=== PATIENT | female | born 1965 | race Caucasian/White ===

== ENCOUNTER → 2017-10-01 | Outpatient (CLI) | payer OTHER ==
[~2017-10-01] MED LIST: AUGMENTIN 875-1 EACH PO; B-12500 MC1 PO; CEFDINIR300 MG PO; CEFUROXIME250 MG PO; CEFUROXIME500 MG PO; CIPROFLOXACIN500 M3; CITALOPRAM HBR40 MG PO; FLOMAX0.4 MG PO; GABAPENTIN 100100 MG PO; GLUCOSAMINE HC500 MG PO; HUMIRA SQ; HYDROCHLOROTHIA25 M2 PO; HYDROCODONE-AP1 EAC6 PO; IBUPROFEN 200200 M1 PO; IBUPROFEN 800800 M1 PO; IRON325 PO; KEFLEX500 M1 PO; KEFLEX500 MG PO; LEVSIN0.125 MG PO; LEVSIN0.125 MG SUBLING; LIALDA1.2 GM PO; LISINOPRIL20 MG PO; LORTAB 5 MG/5001 TA1; PROBIOTIC1 EAC1 PO; TRAMADOL 50 MG50 MG PO; TRANSDERM-SCOP1 EACH TRANSDERM; VANCOCIN 250 M250 M1 PO; VESICARE 5 MG TA5 MG PO; VITAMIN D1000 UNI1 PO; VITAMIN D3400 UNIT PO; XANAX 0.5 MG0.5 MG PO; ZOFRAN ODT4 MG DISSOLVE
== END ==
LOC: M.RAD 09:34
DX: Z12.31 Encounter for screening mammogram for malignant neoplasm of breast (principal)

== ENCOUNTER → 2017-10-06 | Outpatient (CLI) | payer OTHER | LOC: M.RAD 10-02 10:51 | DX: N63.10 Unspecified lump in the right breast, unspecified quadrant (principal); R92.8 Other abnormal and inconclusive findings on diagnostic imaging of breast ==

== ENCOUNTER → 2017-10-09 | Outpatient (CLI) | payer OTHER ==
--- NOTE | 2017-10-10 15:20 | S ---
[place] [address] SURGICAL PATH RPT PROCEDURE Name: KELLY ESTEVES Room: [facility]..#: [id number] Admission: 10/09/17 Date of : 65 Discharge: Report #: [id number] Path Case #: [id number] PATHOLOGY REPORT COLLECTION DATE: 10/09/2017 RECEIVED DATE: 10/09/2017 SUBMITTING PHYS: Dr. Oswaldo Miles OTHER PHYS: Dr. Julieth Vasquez [facility] SPECIMEN(S) RECEIVED: A.Right breast mass with calcification * * * * * * * * * * * * FINAL DIAGNOSIS: Right breast mass with calcifications, sterotactic biopsy: - Benign breast tissue with incidental small fibroadenoma, fibrosis, and duct ectasia with abundant coarse luminal calcifications, negative for atypia (see comment). COMMENT: An incidental fibroadenoma measuring 1 mm is seen in A4. Reviewed with Dr. Trevor Duran who agrees with the diagnosis. (ELADIA:pit; 10/10/2017) PATHOLOGIST: Brennen Wild M.D. REPORT ELECTRONICALLY SIGNED BY: Brennen Wild M.D. DATE/TIME: 10/10/2017 15:19 * * * * * * * * * * * * GROSS PATHOLOGY: Received in formalin labeled "Kelly Esteves, right breast mass with calcification" is a specimen consisting of a 3.0 x 2.0 x 0.3 cm aggregate of maed-yellow fragments of soft tissue, which are located on a portion of Telfa pad within the container. These fragments are submitted in cassettes A1-A2. Also within the container is a cassette containing a 2.5 x 2.2 x 0.5 cm aggregate of mead-yellow fragments of soft tissue. The fragments are submitted in cassettes A3-A4. The specimen is removed from the patient and placed in formalin at 1119 on 10/09/18. The specimen is removed from formalin at 2150 on 10/09/17. Total formalin fixation time of 10.5 hours. ([facility]; 10/09/2017) CLINICAL HISTORY: Right breast stereotactic biopsy [place] [address] SURGICAL PATH RPT PROCEDURE Name: ESTEVESKELLYCODI ROJOE Room: [facility]#: [id number] Admission: 10/09/17 Date of : 65 Discharge: Report #: [id number] Path Case #: [id number] INITIAL CPT CODE(S): A; 41655 Professional services performed by [facility] at [facility] [address] [place] [address] Technical services performed by [facility] at [address] [place] [address], [facility] [address], [place] [address]. [facility] [address] [address] PHONE: [phone] DIRECTOR: Donnell Senior M.D. * * * END OF REPORT * * *
== END | disposition home or self-care (01) ==
LOC: M.RAD 10:26
DX: D24.1 Benign neoplasm of right breast (principal); N60.41 Mammary duct ectasia of right breast; Z79.891 Long term (current) use of opiate analgesic; Z88.8 Allergy status to other drugs, medicaments and biological substances; Z87.440 Personal history of urinary (tract) infections

== ENCOUNTER → 2018-04-02 | Outpatient (CLI) | payer OTHER ==
[~2018-04-02] MED LIST changes: -AUGMENTIN 875-1 EACH PO; -GLUCOSAMINE HC500 MG PO; -LEVSIN0.125 MG SUBLING; -PROBIOTIC1 EAC1 PO; -TRAMADOL 50 MG50 MG PO; -TRANSDERM-SCOP1 EACH TRANSDERM
== END ==
LOC: M.RAD 09:18
DX: R92.8 Other abnormal and inconclusive findings on diagnostic imaging of breast (principal)

== ENCOUNTER 2018-04-18 07:55 | Emergency (ER) | payer OTHER ==
[~2018-04-18] VITALS: Ht 165.1 cm; Wt 99.8 kg
[~2018-04-18 07:55] MED LIST changes: -CEFDINIR300 MG PO; -CITALOPRAM HBR40 MG PO; -GABAPENTIN 100100 MG PO; -HYDROCHLOROTHIA25 M2 PO; -KEFLEX500 M1 PO; -LISINOPRIL20 MG PO; -VESICARE 5 MG TA5 MG PO; -VITAMIN D3400 UNIT PO; -ZOFRAN ODT4 MG DISSOLVE
[2018-04-18 08:08] LABS: URINE BILIRUBIN NEGATIVE (Negative); URINE BLOOD 3+ (Negative); URINE CLARITY CLEAR; URINE COLOR YELLOW; URINE GLUCOSE-RANDOM NEGATIVE (Negative); URINE KETONES NEGATIVE (Negative); URINE PROTEIN 2+ (Negative); URINE SPECIFIC GRAVITY 1.025 (1.005-1.030); URINE UROBILINOGEN 0.2 E.U./dl (0.2-1.0)
[2018-04-18] MEDS ORDERED: LISINOPRIL20 MG PO (08:09)
[2018-04-18] MEDS ORDERED: CITALOPRAM HBR40 MG PO (08:09)
[2018-04-18] MEDS ORDERED: HYDROCHLOROTHIA25 M2 PO (08:10)
[2018-04-18] MEDS ORDERED: GABAPENTIN 100100 MG PO (08:10)
[2018-04-18] MEDS ORDERED: VITAMIN D3400 UNIT PO (08:10)
[2018-04-18 08:11] LABS: URINE LEUKOCYTES-REFLEX 3+ (Negative); URINE NITRITE-REFLEX POSITIVE (Negative)
[2018-04-18] MEDS ORDERED: IBUPROFEN 800800 M1 PO (08:11)
[2018-04-18 08:32] LABS: CASTS None Seen /LPF (None Seen); CRYSTALS None Seen /LPF (None Seen); MUCUS 4-6 Moderate strn/LPF (None Seen); SQUAMOUS 0-3 Few /LPF (0-3); URINE WBC-REFLEX >25 Many /HPF (0-5)
[2018-04-18 08:53] LABS: HEMATOCRIT 35.5 % (37.0-47.0); HEMOGLOBIN 11.8 gm/dL (12.0-15.0); MCH 28.6 pg (26.0-34.0); MCHC 33.2 g/dL (28.0-37.0); MPV 7.7 fl. (7.2-11.1); NUCLEATED RBCS 0 /100WBC; PLATELET COUNT* 249 thou/uL (150-400); RBC 4.13 mil/uL (4.20-5.00); RDW-CV 13.2 % (10.5-14.5); WBC 10.1 thou/uL (4.0-11.0)
[2018-04-18 08:59] LABS: ANION GAP 8 mmol/L (7-16); BUN 28 mg/dL (7-18); CALCIUM 9.5 mg/dL (8.5-10.1); CHLORIDE 106 mmol/L (98-107); CO2 25 mmol/L (21-32); CREATININE 1.3 mg/dL (0.6-1.3); GLUCOSE 122 mg/dL (70-99); SODIUM 139 mmol/L (136-145)
[2018-04-18 09:09] LABS: ALBUMIN 3.5 g/dL (3.4-5.0); ALKALINE PHOSPHATASE 71 U/L (46-116); LIPASE 262 U/L (73-393); SGOT 17 U/L (15-37); SGPT 22 U/L (30-65); TOTAL PROTEIN 7.7 g/dL (6.4-8.2); TROPONIN-I LEVEL <0.06 ng/mL (<0.06)
[2018-04-18 09:23] LABS: ABSOLUTE LYMPHOCYTES 0.9 thou/uL (0.8-5.3); ABSOLUTE MONOCYTES 0.4 thou/uL (0.0-1.2); ABSOLUTE NEUTROPHILS 8.8 thou/uL (1.6-8.1); ATYPICAL LYMPHS 8 %; MYELOCYTES 1 %; PLATELET ESTIMATE ADEQUATE
[2018-04-18] MEDS ORDERED: HYDROCODONE-AP1 EAC6 PO (09:26)
[2018-04-18] MEDS ORDERED: KEFLEX500 M1 PO (09:26)
[2018-04-18] MEDS ORDERED: ZOFRAN ODT4 MG DISSOLVE (09:26)
[2018-04-18 09:37] VITALS: BP 156/42
--- NOTE | 2018-04-18 12:50 | EKG ---
[place] [address] ELECTROCARDIOGRAM REPORT Name: MARTHA ESTEVES Room: [facility]#: [id number] Admission: 04/18/18 Attend Phys: Discharge: 04/18/18 Date of : 65 Report #: [id number] THIS REPORT FOR: //name// [facility] ED Test Date: 2018-04-18 Test Time: 08:18:27 Pat Name: MARTHA ESTEVES Department: Room: Gender: F Supervisor [employer] Workers: Edgardo RICHMOND : 1965 Requested By: Ritchie Christianson Order Number: [id number] MD: Laron Turner Measurements Intervals [place] Rate: 106 P: 45 [place]: 134 QRS: 30 QRSD: 104 T: 28 QT: 305 QTc: 405 Interpretive Statements Sinus tachycardia RSR' in V1 or V2, right VCD or RVH Compared to ECG 05/05/2017 04:01:59 Right ventricular hypertrophy now present Sinus rhythm no longer present Electronically Signed On 04-18-2018 12:50:40 CDT by Laron Turner [email or web address] <ELECTRONICALLY SIGNED> By: Laron Turner MD, FACC 04/18/18 1250 7 7 Laron Turner MD, FAC /EPI
== END 2018-04-18 09:38 | disposition home or self-care (01) ==
LOC: M.ERS 07:55
PROVIDERS: Emergency Medicine Emergency Medical Services
DX: N12 Tubulo-interstitial nephritis, not specified as acute or chronic (principal); E66.01 Morbid (severe) obesity due to excess calories; Z68.36 Body mass index [BMI] 36.0-36.9, adult; Z90.49 Acquired absence of other specified parts of digestive tract; Z88.1 Allergy status to other antibiotic agents; Z88.5 Allergy status to narcotic agent

== ENCOUNTER 2018-04-20 03:17 | Inpatient (IN) | payer OTHER ==
[~2018-04-20] VITALS: Ht 165.1 cm; Wt 130.3 kg
[~2018-04-20 03:17] MED LIST changes: +CITALOPRAM HBR40 MG PO; +GABAPENTIN 100100 MG PO; +HYDROCHLOROTHIA25 M2 PO; +KEFLEX500 M1 PO; +LISINOPRIL20 MG PO; +VITAMIN D3400 UNIT PO; +ZOFRAN ODT4 MG DISSOLVE
[2018-04-20 03:26] VITALS: BP 128/68
[2018-04-20 03:47] LABS: URINE BILIRUBIN NEGATIVE (Negative); URINE BLOOD 3+ (Negative); URINE CLARITY CLOUDY; URINE COLOR YELLOW; URINE GLUCOSE-RANDOM NEGATIVE (Negative); URINE KETONES TRACE (Negative); URINE NITRITE-REFLEX NEGATIVE (Negative); URINE PROTEIN 2+ (Negative); URINE SPECIFIC GRAVITY 1.025 (1.005-1.030); URINE UROBILINOGEN 0.2 E.U./dl (0.2-1.0)
[2018-04-20 03:48] LABS: URINE LEUKOCYTES-REFLEX 2+ (Negative)
[2018-04-20 03:58] LABS: HEMATOCRIT 34.2 % (37.0-47.0); HEMOGLOBIN 11.3 gm/dL (12.0-15.0); MCH 28.1 pg (26.0-34.0); MCHC 33.1 g/dL (28.0-37.0); MPV 7.6 fl. (7.2-11.1); NUCLEATED RBCS 0 /100WBC; PLATELET COUNT* 236 thou/uL (150-400); RBC 4.03 mil/uL (4.20-5.00); RDW-CV 13.3 % (10.5-14.5)
[2018-04-20 04:06] LABS: CALCIUM 9.1 mg/dL (8.5-10.1); CREATININE 1.4 mg/dL (0.6-1.3); POTASSIUM 3.4 mmol/L (3.5-5.1)
[2018-04-20 04:11] LABS: ALBUMIN 2.8 g/dL (3.4-5.0); TOTAL BILIRUBIN 0.8 mg/dL (<0.1-1.0); TOTAL PROTEIN 7.4 g/dL (6.4-8.2)
[2018-04-20 04:13] LABS: CASTS None Seen /LPF (None Seen); URINE WBC-REFLEX >25 Many /HPF (0-5)
[2018-04-20 04:14] LABS: URINE RBC >20 Many /HPF (0-2)
[2018-04-20 04:15] LABS: BACTERIA-REFLEX 1-9 Few /HPF (None Seen); CRYSTALS None Seen /LPF (None Seen); SQUAMOUS 4-10 Moderate /LPF (0-3)
[2018-04-20 05:22] LABS: ABSOLUTE LYMPHOCYTES 1.1 thou/uL (0.8-5.3); ABSOLUTE MONOCYTES 0.6 thou/uL (0.0-1.2); ABSOLUTE NEUTROPHILS 10.3 thou/uL (1.6-8.1)
[2018-04-20 05:23] LABS: CLUMPED PLTS RARE; PLATELET ESTIMATE ADEQUATE
[2018-04-20 05:25] LABS: TOXIC GRANULATION Occasional
[2018-04-20 06:40] VITALS: BP 106/60
--- NOTE | 2018-04-20 06:40 | NUR ---
ADMITTED TO FLOOR PER CART ACCOMPANIED BY ER STAFF WITH BELONGINGS. AMBULATES FROM CART TO BED WITH STEADY GAIT. HISTORY OBTAINED AND ASSESSMENT PERFORMED, SEE ADMIT NOTES. PT CO NAUSEA, HAD MEDS BEFORE TRANSFERRING UP TO FLOOR. RFA IVF INFUSING PER PUMP. ORIENTED TO ROOM AND CALL LITE, AOX4. CALL LITE IN EASY REACH, WILL CONTINUE TO MONITOR AND PROVIDE CARES NEEDED.
[2018-04-20 08:07] VITALS: BP 99/58
--- NOTE | 2018-04-20 10:08 | NUR ---
Nutrition: Pt admitted with UTI, nausea, vomiting, fever. Recently diagnosed with UTI, now with worse S/S. Consult received d/t high BMI. Wt is 280#. CLD ordered for now. Albumin 2.8, BG 131. Will follow for POC, diet advancement. Follow up 04/23/18. Mild risk.
--- NOTE | 2018-04-20 10:37 | NUR ---
SW met with pt to complete initial assessment, introduce self, and SW role. Pt alert, oriented, pleasant. Pt lives at home with her . Pt continues to work and is independent with ADLs and mobility. Pt did not express any dc needs at this time. SW to continue to follow to assist with safe dc planning.
[2018-04-20 12:00] VITALS: BP 122/46
[2018-04-20 16:00] VITALS: BP 101/54
--- NOTE | 2018-04-20 17:55 | NUR ---
PT C/O NAUSEA AND RIGHT FLANK PAIN THROUGHOUT THE SHIFT. CONTROLLED WITH PRN REGLAN AND FENTANYL. PT ALSO C/O HEADACHE - RESOLVED WITH IBUPROFEN. PT CONTINUES TO C/O URINARY URGENCY AND FREQUENCY. SMALL BM THIS SHIFT THAT WAS SOFT/FORMED - UNABLE TO SEND FOR CDIFF. PT VSS. AFEBRILE. A&O. APPROPRIATE. AMBULATING INDEPENDENTLY. CONCERNED ABOUT WAITING TO START ABX UNTIL CULTURE RETURNS AND WANTS TO RESTART ALL HOME MEDS. AWARE.
[2018-04-21 01:54] VITALS: BP 96/46
--- NOTE | 2018-04-21 05:38 | NUR ---
PT SLEPT WELL SHE STATES. RECEIVING IV PAIN MED X1 FOR CO FLANK PAIN, IBUPROFEN GIVEN FOR HEADACHE. RFA IVF INFUSING PER PUMP, ABX GIVEN ORDERED. UP INDEP IN ROOM TO BR, PT AWARE OF NEED FOR STOOL SPECIMEN-STATES STOOL TODAY WAS FORMED AND UNABLE TO SEND TO LAB. DENIES NAUSEA, STATES FREQUENCY AND URGENCY HAVE SUBSIDED. ABLE TO USE CALL LITE AND MAKE NEEDS KNOWN.
[2018-04-21 07:40] VITALS: BP 117/65
[2018-04-21 08:17] VITALS: BP 117/65
--- NOTE | 2018-04-21 17:42 | NUR ---
PATIENT HAS BEEN ALERT AND ORIENTED TODAY VERY PLEASANT, UP AD MONROE IN ROOM. SOME COMPLAINTS OF MILD PAIN THAT IS CONTROLLED WTIH ORAL PAIN MEDICATIONS. VITAL SIGNS HAVE BEEN STABLE ON ROOM AIR. CALL LIGHT IS IN REACH, WILL CONTINUE TO MONITOR.
[2018-04-22 04:54] LABS: HEMATOCRIT 29.8 % (37.0-47.0); HEMOGLOBIN 10.1 gm/dL (12.0-15.0); MCH 28.7 pg (26.0-34.0); MCHC 33.8 g/dL (28.0-37.0); MCV 84.9 fL (80.0-100.0); RBC 3.51 mil/uL (4.20-5.00); RDW-CV 13.4 % (10.5-14.5); WBC 6.8 thou/uL (4.0-11.0)
[2018-04-22 05:00] LABS: CALCIUM 8.4 mg/dL (8.5-10.1); CREATININE 0.9 mg/dL (0.6-1.3); POTASSIUM 3.4 mmol/L (3.5-5.1)
--- NOTE | 2018-04-22 06:04 | NUR ---
PT SLEPT WELL OVERNIGHT. UP AD MONROE IN ROOM, VOIDING WITHOUT DIFFICULTY SHE STATES. LWRIST IVF INFUSING PER PUMP, ABX GIVEN ORDERED. HAS DENIED PAIN OR NAUSEA THIS SHIFT, TOLERATING DIET WITHOUT N/V. ANTICIPATING DISCHARGE HOME TODAY. ABLE TO USE CALL LITE AND MAKE NEEDS KNOWN.
[2018-04-22 07:45] VITALS: BP 119/58
[2018-04-22] MEDS ORDERED: CEFDINIR300 MG PO (13:32)
[2018-04-22] MEDS ORDERED: VESICARE 5 MG TA5 MG PO (13:33)
[2018-04-22 13:37] VITALS: BP 119/58
--- NOTE | 2018-04-22 16:21 | NUR ---
PATIENT GIVEN DISCHARGE INSTRUCTIONS AND PRESCRIPTIONS. PATIENT VERBALIZED UNDERSTANDING IN REGARDS TO FOLLOW UP APPOINTMENTS, PRESCRIPTIONS, AND S/S OT CALL PHYSICIAN. PATIETN'S IV REMOVED. PATIENT DISCHARGED TO HOME WITH ALL BELONGINGS. ESCORTED OFF NURSING UNIT VIA WHEELCHAIR WITH NURSING STAFF.
== END 2018-04-22 16:05 | disposition home or self-care (01) | DRG 689 ==
LOC: M.ERS 03:17 → M.TBA-ER 05:24 → M.3W 05:24
PROVIDERS: Emergency Medicine; Internal Medicine; ADMIT Internal Medicine
DX: N12 Tubulo-interstitial nephritis, not specified as acute or chronic (principal); R65.11 Systemic inflammatory response syndrome (SIRS) of non-infectious origin with acute organ dysfunction; E44.0 Moderate protein-calorie malnutrition; Z68.42 Body mass index [BMI] 45.0-49.9, adult; K51.90 Ulcerative colitis, unspecified, without complications; N17.0 Acute kidney failure with tubular necrosis; L40.9 Psoriasis, unspecified; B96.1 Klebsiella pneumoniae [K. pneumoniae] as the cause of diseases classified elsewhere; N18.2 Chronic kidney disease, stage 2 (mild); E66.01 Morbid (severe) obesity due to excess calories; Z87.442 Personal history of urinary calculi; Z87.891 Personal history of nicotine dependence; Z90.49 Acquired absence of other specified parts of digestive tract; Z79.899 Other long term (current) drug therapy; Z88.1 Allergy status to other antibiotic agents; Z88.5 Allergy status to narcotic agent

== ENCOUNTER 2018-05-07 19:03 | Emergency (ER) | payer OTHER ==
[~2018-05-07] VITALS: Ht 165.1 cm; Wt 127.0 kg
[~2018-05-07 19:03] MED LIST changes: +CEFDINIR300 MG PO; +VESICARE 5 MG TA5 MG PO
[2018-05-07] MEDS ORDERED: GLUCOSAMINE HC500 MG PO (19:31)
[2018-05-07] MEDS ORDERED: PROBIOTIC1 EAC1 PO (19:32)
[2018-05-07 19:34] LABS: URINE BILIRUBIN NEGATIVE (Negative); URINE BLOOD 3+ (Negative); URINE CLARITY CLOUDY; URINE COLOR YELLOW; URINE GLUCOSE-RANDOM TRACE (Negative); URINE KETONES NEGATIVE (Negative); URINE LEUKOCYTES-REFLEX 3+ (Negative); URINE NITRITE-REFLEX NEGATIVE (Negative); URINE PROTEIN 2+ (Negative); URINE SPECIFIC GRAVITY 1.025 (1.005-1.030); URINE UROBILINOGEN 0.2 E.U./dl (0.2-1.0)
[2018-05-07 19:52] LABS: HYALINE CASTS 0-3 Few /LPF (None Seen); SQUAMOUS >10 Many /LPF (0-3); URINE WBC-REFLEX >25 Many /HPF (0-5)
[2018-05-07 19:53] LABS: BACTERIA-REFLEX 1-9 Few /HPF (None Seen); CRYSTALS None Seen /LPF (None Seen); MUCUS 0-3 Light strn/LPF (None Seen); WBC CLUMPS Few (None Seen)
[2018-05-07 19:59] LABS: HEMATOCRIT 32.6 % (37.0-47.0); HEMOGLOBIN 10.8 gm/dL (12.0-15.0); MCH 27.6 pg (26.0-34.0); MCHC 33.1 g/dL (28.0-37.0); MCV 83.2 fL (80.0-100.0); MPV 7.4 fl. (7.2-11.1); NUCLEATED RBCS 0 /100WBC; PLATELET COUNT* 296 thou/uL (150-400); RBC 3.91 mil/uL (4.20-5.00); RDW-CV 13.6 % (10.5-14.5); WBC 11.7 thou/uL (4.0-11.0)
[2018-05-07 20:06] LABS: INFLUENZA A ANTIGEN None Detected (None Detect); INFLUENZA B ANTIGEN None Detected (None Detect)
[2018-05-07 20:09] LABS: CALCIUM 9.4 mg/dL (8.5-10.1); CREATININE 1.5 mg/dL (0.6-1.3); POTASSIUM 3.4 mmol/L (3.5-5.1)
[2018-05-07 20:14] LABS: ALBUMIN 3.2 g/dL (3.4-5.0); TOTAL BILIRUBIN 0.9 mg/dL (<0.1-1.0); TOTAL PROTEIN 7.3 g/dL (6.4-8.2)
[2018-05-07 20:17] LABS: ABSOLUTE BASOPHILS 0.1 thou/uL (0.0-0.2); ABSOLUTE LYMPHOCYTES 0.1 thou/uL (0.8-5.3); ABSOLUTE MONOCYTES 0.4 thou/uL (0.0-1.2); ABSOLUTE NEUTROPHILS 11.1 thou/uL (1.6-8.1); PLATELET ESTIMATE ADEQUATE
[2018-05-07] MEDS ORDERED: CEFDINIR300 MG PO (20:30)
[2018-05-07 20:46] VITALS: BP 121/69
== END 2018-05-07 20:47 | disposition home or self-care (01) ==
LOC: M.ERS 19:03
PROVIDERS: Nurse Practitioner
DX: N39.0 Urinary tract infection, site not specified (principal); L40.9 Psoriasis, unspecified; E66.01 Morbid (severe) obesity due to excess calories; Z68.42 Body mass index [BMI] 45.0-49.9, adult; Z88.1 Allergy status to other antibiotic agents; Z88.6 Allergy status to analgesic agent; Z90.49 Acquired absence of other specified parts of digestive tract; Z87.442 Personal history of urinary calculi

== ENCOUNTER 2018-05-08 13:36 | Inpatient (IN) | payer OTHER ==
[2018-05-08] VITALS (8 sets, daily range): BP systolic 116–147; BP diastolic 33–106
[~2018-05-08] VITALS: Ht 165.1 cm; Wt 125.8 kg
--- NOTE | ~2018-05-08 | OP ---
[address] [address] OPERATIVE REPORT Name: MARTHA ESTEVES Room: [address] IN M.R.#: [id number] Admission: 05/08/18 Attend Phys: Jessie Gallegos MD Discharge: Date of : 65 Report #: [id number] THIS REPORT FOR: //name// CC: Jessie Chavarria DATE OF SERVICE: 05/09/2018 PREOPERATIVE DIAGNOSES: 1. Left renal calculus. 2. Left pyelonephritis. POSTOPERATIVE DIAGNOSES: 1. Left renal calculus. 2. Left pyelonephritis. PROCEDURES PERFORMED: 1. Cystoscopy with left retrograde pyelogram. 2. Left 6 x 26 double-J ureteral stent placement. SURGEON: Kvng Clark M.D. ANESTHESIA: General endotracheal. BRIEF HISTORY: The patient is a 52-year-old female, with a history of nephrolithiasis, who presented to the [facility] with back pain, nausea, emesis and fever to [address] imaging was obtained in the ER that demonstrated a 60 mm left lower pole calculus projecting into the left renal pelvis as well as mild hydronephrosis and significant perinephric stranding consistent with pyelonephritis. The patient's laboratory evaluation demonstrated a leukocytosis of 16,900 and renal dysfunction with a BUN of 30 and a creatinine of 2.1. Urinalysis was suspicious for infection. Given the above scenario, the recommendation was made for cystoscopy with left retrograde pyelogram and left ureteral stent placement. The risks of the procedure including the risks of bleeding, worsening infection, damage to surrounding structures, need for additional procedures and anesthetic risks were discussed with the patient and she wished to proceed. PROCEDURE IN DETAIL: The risks and benefits of surgery were discussed with the patient and she wished to proceed. Informed consent was obtained and the patient was transferred to the operating room where she was laid supine on the operating room table. After the induction of adequate general endotracheal anesthesia, the patient's legs were placed in a modified dorsal lithotomy position taking care to pad all pressure points and avoid any hyperextension or hyperflexion of her joints. The patient previously received empiric broad-spectrum antibiotics. Her genitalia were then prepped [place] [address] OPERATIVE REPORT Name: MARTHA ESTEVES Room: [address] IN [facility].#: [id number] Admission: 05/08/18 Attend Phys: Jessie Gallegos MD Discharge: Date of : 65 Report #: [id number] usual sterile fashion. A timeout was then performed to ensure correct patient and procedure. At this time, a 22-Montserratian cystoscope sheath with a 30-degree cystoscope lens was lubricated and advanced under direct vision and irrigation through the urethra into the bladder. The cystoscope was disarticulated and the bladder was drained. Cystoscopy was performed under direct vision and irrigation. The patient's left ureteral orifice was laterally displaced and in a golf-hole configuration. 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 Systematic panendoscopy revealed no gross bladder wall pathology. There were no papillary bladder tumors or suspicious mucosal lesions identified. At this time, a 5-Montserratian Pollack catheter was placed into the patient's left ureteral orifice. A left retrograde pyelogram was performed. Contrast could be seen filling the distal, mid and proximal left ureter as well as the left collecting system. The patient's lower pole calculus was opacified on retrograde pyelogram. There also appeared to be mild narrowing at the left ureteropelvic junction with mild associated left hydronephrosis. The Pollack catheter was removed and a 0.038 ZIPwire was advanced into the ureter and up into the kidney under fluoroscopic guidance. A 6 x 26 double-J ureteral stent was then advanced over the wire and into position. The wire was withdrawn deploying the stent. A good coil of the stent was identified within the left renal pelvis under fluoroscopy and a good coil of the stent was identified within the bladder under direct vision with the cystoscope. There was some drainage of contrast material and turbid debris from the stent following placement. The cystoscope was disarticulated and the bladder was drained. The cystoscope was removed. The patient's urethra was anesthetized with 2% lidocaine jelly. She was returned to a supine position, awakened from anesthesia, and transferred to the postoperative care unit in stable condition. The patient tolerated the procedure well. COMPLICATIONS: None. ESTIMATED BLOOD LOSS: None. IV FLUIDS: Crystalloid. DRAINS: Left 6 x 26 double-J ureteral stent. SPECIMENS: None. FINDINGS: 1. 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 Single left ureteral orifice laterally displaced and in a golf-hole configuration. 2. No gross bladder wall pathology. No papillary bladder tumors or suspicious mucosal lesions. 3. Left retrograde pyelogram demonstrating mild left hydronephrosis and opacifying the patient's left lower pole calculus. [address] [address] OPERATIVE REPORT Name: MARTHA ESTEVES Room: 002-P [facility] IN [facility]#: [id number] Admission: 05/08/18 Attend Phys: Jessie Gallegos MD Discharge: Date of : 65 Report #: [id number] 4. Left 6 x 26 double-J ureteral stent in good position by fluoroscopy and direct vision. By: [id number] Clark MD /nt
[~2018-05-08 13:36] MED LIST changes: +GLUCOSAMINE HC500 MG PO; +PROBIOTIC1 EAC1 PO
[2018-05-08 14:47] LABS: URINE BILIRUBIN NEGATIVE (Negative); URINE BLOOD 3+ (Negative); URINE CLARITY CLEAR; URINE COLOR YELLOW; URINE GLUCOSE-RANDOM NEGATIVE (Negative); URINE KETONES NEGATIVE (Negative); URINE NITRITE-REFLEX NEGATIVE (Negative); URINE PROTEIN 2+ (Negative); URINE SPECIFIC GRAVITY 1.025 (1.005-1.030); URINE UROBILINOGEN 0.2 E.U./dl (0.2-1.0)
[2018-05-08 14:59] LABS: URINE LEUKOCYTES-REFLEX 3+ (Negative)
[2018-05-08 15:03] LABS: CASTS None Seen /LPF (None Seen); CRYSTALS None Seen /LPF (None Seen); SQUAMOUS 0-3 Few /LPF (0-3); URINE RBC 3-10 Few /HPF (0-2); URINE WBC-REFLEX >25 Many /HPF (0-5)
[2018-05-08 15:22] LABS: HCO3 24.4 mmol/L (22.0-26.0); PCO2 31.2 mmHg (35.0-45.0); pH 7.511 (7.340-7.450)
[2018-05-08 15:25] LABS: PO2 42.3 mmHg (75.0-100.0)
[2018-05-08 15:28] LABS: HEMATOCRIT 35.8 % (37.0-47.0); HEMOGLOBIN 11.8 gm/dL (12.0-15.0); MCH 27.8 pg (26.0-34.0); MCHC 32.8 g/dL (28.0-37.0); MCV 84.8 fL (80.0-100.0); MPV 7.7 fl. (7.2-11.1); NUCLEATED RBCS 0 /100WBC; PLATELET COUNT* 281 thou/uL (150-400); RBC 4.23 mil/uL (4.20-5.00); RDW-CV 13.6 % (10.5-14.5); WBC 16.9 thou/uL (4.0-11.0)
[2018-05-08 15:37] LABS: CALCIUM 9.6 mg/dL (8.5-10.1); CREATININE 2.1 mg/dL (0.6-1.3)
[2018-05-08 15:42] LABS: ALBUMIN 3.2 g/dL (3.4-5.0); MAGNESIUM 1.5 mg/dL (1.8-2.4); TOTAL BILIRUBIN 1.3 mg/dL (<0.1-1.0); TOTAL PROTEIN 8.1 g/dL (6.4-8.2)
[2018-05-08 16:05] LABS: ABSOLUTE LYMPHOCYTES 0.7 thou/uL (0.8-5.3); ABSOLUTE MONOCYTES 1.2 thou/uL (0.0-1.2); PLATELET ESTIMATE ADEQUATE
--- NOTE | 2018-05-08 17:05 | NUR ---
RIGHT BASILIC VESSEL ACCESSED FOR 5 TOGOLESE DUAL LUMEN PICC. LINE PRE-TRIMMED TO 39 CM AND ADVANCED TO THE ZERO MAR WITH NO RESISTANCE MET. UPPER ARM CIRCUMFERENCE ABOVE INSERTION SITE= 18 1/2". SHERLOCK MAGNET AND 3CG CONFIRMATION OF TIP[ TERMINATION AT THE CAVOATRIAL JUNCTION. STYLET REMOVED, INSERTINO SITE DRESSED AND REPORT GIVEN TO NORA SWIFT.
--- NOTE | 2018-05-08 18:29 | NUR ---
PT CAME TO ICU FROM ER AT 1730. TEMP 100.9, TYLENOL ADMININSTERED PER EMAR. FLUIDS FROM ER INFUSING. 1600 ZOSYN ADMININSTERED IN ICU. PT C/O OF PAIN IN BACK 11/30. [address] CABRAL ASKED FOR PAIN MEDICATION AND NAUSEA MEDICATION. AWAITING CALL BACK. RECEIVED CALL FROM ID. ORDERS RECEIVED FOR CEFEPINE AND CT ABDOMEN/PELVIS.
[2018-05-09] VITALS (19 sets, daily range): BP systolic 94–150; BP diastolic 46–76
--- NOTE | 2018-05-09 00:15 | NUR ---
CT RESULTS RECEIVED VIA FAX, 16MM STONE IN L RENAL PELVIS. ORDERING PHYSICIAN NOTIFIED. PER DR LINO UROLOGY CONSULT CALLED TO ANSWERING SERVICE, REQUESTED CALL BACK DUE TO PTS PAIN, N/V, AND FEVER.
--- NOTE | 2018-05-09 00:25 | NUR ---
SPOKE TO DR CARVER, WILL BE IN TO SEE PT.
--- NOTE | 2018-05-09 02:03 | NUR ---
PT TAKEN TO SURGERY AT 0151. SURGERY AND ANESTHESIA CONSENTS OBTAINED BY FISH PROCESSING SUPERVISOR. JEWELRY REMOVED AND SECURED IN ROOM. PT DRESSED IN HOSPITAL GOWN ONLY. PT STATES SHE HAS HAD CYSTOSCOPY AND STENT PLACEMENT PREVIOUSLY AND IS FAMILIAR WITH THE PROCEDURE. PT HAD NOTIFIED HER VIA CELL PHONE PRIOR TO LEAVING UNIT.
--- NOTE | 2018-05-09 02:34 | NUR ---
RETURNED TO ICU BED 2 AT THIS TIME, VILMA.
[2018-05-09 02:53] LABS: HEMATOCRIT 28.6 % (37.0-47.0); MCH 28.3 pg (26.0-34.0); MCHC 33.6 g/dL (28.0-37.0); MCV 84.4 fL (80.0-100.0); MPV 7.4 fl. (7.2-11.1); RBC 3.39 mil/uL (4.20-5.00); RDW-CV 13.6 % (10.5-14.5); WBC 11.7 thou/uL (4.0-11.0)
[2018-05-09 03:40] LABS: HEMOGLOBIN 9.6 gm/dL (12.0-15.0)
[2018-05-09 03:48] LABS: ALBUMIN 2.3 g/dL (3.4-5.0); CALCIUM 8.1 mg/dL (8.5-10.1); CREATININE 1.8 mg/dL (0.6-1.3); MAGNESIUM 2.1 mg/dL (1.8-2.4); TOTAL BILIRUBIN 0.9 mg/dL (<0.1-1.0); TOTAL PROTEIN 5.8 g/dL (6.4-8.2)
--- NOTE | 2018-05-09 06:50 | NUR ---
PROGRESSING TOWARD GOALS. PT SLEPT WELL SINCE RETURN FROM OR. AWOKE AT 0615 TO USE BSC. REPORTED MILD LEFT FLANK PAIN, DENIED NEED FOR INTERVENTION. DENIED NAUSEA. CALL LIGHT WITHIN REACH.
--- NOTE | 2018-05-09 17:39 | NUR ---
0900 EMILY CALLED TO RECEIVE BLOOD GAS RESULTS, DISCUSSED PT ANXIETY, ORDERS TO GIVE 3MG MORPHINE Q3H PRN FOR AIR HUNGER/ANXIETY. CALLED COURTNEY TO GIVE UPDATE AND GET ORDER FOR PICC LINE PLACEMENT. PT DAUGHTER NORA CALLED TO GET CONSENT FOR PICC LINE, DAUGHTER CONSENTED TO PICC LINE. PICC NURSE CALLED. REPORTED TO COURTNEY THAT PT CAN NOT LAY FLAT AT THIS TIME FOR CT CHEST, ORDERS TO HOLD UNTIL PT ABLE. BRIM BLOCKER CONSULTED FOR POSSIBLE RESIDENTIAL APPLIANCE REPAIR TECHNICIAN PLACEMENT- DAUGHTER CONCERNED ABOUT PT WELL BEING AT HOME ALONE.
[2018-05-10] VITALS (9 sets, daily range): BP systolic 105–152; BP diastolic 62–76
--- NOTE | 2018-05-10 05:18 | NUR ---
ASSUMED PT CARE AT 1930. NURSING ASSESSMENT COMPLETED AT START OF SHIFT AND Q4H. PT CONTINUES TO C/O URINARY URGENCY. TEMP UP TO 102.2 THIS SHIFT. PO ACETAMINOPHEN ADMINSTERED PER EMAR. TEMP RECHECK AT 98.6 F. PRN PAIN MEDICATION ADMINISTERED X1. BLOOD PRESSURE STABLE, IV FLUIDS INFUSING. PT DOWNGRADED TO TELE STATUS AT 0240. REPORT GIVEN TO JENIFFER LONGORIA. PT TRANSFERED TO ROOM 209 VIA WHEELCHAIR AT APPROX 0315.
[2018-05-10 05:26] LABS: HEMATOCRIT 27.4 % (37.0-47.0); HEMOGLOBIN 9.2 gm/dL (12.0-15.0); MCH 28.4 pg (26.0-34.0); MCHC 33.7 g/dL (28.0-37.0); MCV 84.2 fL (80.0-100.0); MPV 8.3 fl. (7.2-11.1); RBC 3.26 mil/uL (4.20-5.00); RDW-CV 13.9 % (10.5-14.5); WBC 7.5 thou/uL (4.0-11.0)
[2018-05-10 05:35] LABS: ALBUMIN 1.9 g/dL (3.4-5.0); CALCIUM 8.1 mg/dL (8.5-10.1); CREATININE 1.3 mg/dL (0.6-1.3); MAGNESIUM 1.9 mg/dL (1.8-2.4); POTASSIUM 3.7 mmol/L (3.5-5.1); TOTAL BILIRUBIN 0.5 mg/dL (<0.1-1.0); TOTAL PROTEIN 5.9 g/dL (6.4-8.2)
--- NOTE | 2018-05-10 07:48 | NUR ---
PT RECIEVED FROM ICU AT 0330. SAT MAINTAINED IN 2L NC. ALERT AND ORIENTED X4. PT STATED PAIN IN BODY, MEDICATION GIVEN PER EMAR. DENIES ANY SOB. SR RUNNING ON MONITOR.CALL LIGHT WITHIN REACH AND BED IN LOW POSITION.
--- NOTE | 2018-05-10 11:31 | NUR ---
RECEIVED REPORT FROM VON AND ASSUMED CARE OF PT @ 5397.PT IS A/O X4,VSS,TRACING SR ON THE MONITOR.RIGHT UPPER ARM PICC PATENT WITH IVF INFUSING PER ORDERS.IV ANTIBIOTICS GIVEN.PT DIET ADVANCED TO FULL LIQUIDS WITH NO COMPLICATIONS.PT IS CALM AND COOPERATIVE WITH C/O HEADACHE.RELIEF WITH PO MEDICATIONS.PT IS UP SBA IN ROOM WITH BRP.PT LEFT RESTING IN BED WITH CALL LIGHT AND FALL PRECAUTIONS IN PLACE.WILL CONTINUE TO MONITOR.
--- NOTE | 2018-05-10 15:52 | CON ---
[address] [address] CONSULTATION Name: MARTHA ESTEVES Room: [address] IN M.R.#: [id number] Admission: 05/08/18 Attend Phys: Jessie Gallegos MD Discharge: Date of : 65 Report #: [id number] THIS REPORT FOR: //name// CC: Jessie Chavarria DATE OF SERVICE: 05/09/2018 REASON FOR CONSULTATION: Pyelonephritis and sepsis. HISTORY OF PRESENT ILLNESS: The patient is a 52-year-old with a known staghorn calculus, left kidney with recurrent urinary tract infections. She has had previous urologic procedures. She has been under the care of Dr. Elliott. Presents now with the acute onset of left flank pain, fever, chills associated with nausea and vomiting. She has had dysuria and frequency with incomplete emptying. No gross hematuria. Initially seen in the Emergency Room, placed on oral antibiotic therapy 2 days ago only to return last evening with worsening symptoms, found to be hypotensive. A CT scan showed a large stone in the left renal pelvis with mild hydronephrosis evident. There was perinephric stranding. She had temperature up to 38.9 degrees. She has been tachycardic. Has received IV fluids. Due to the large stone reported, Urology was consulted. A retrograde stent was placed without complication. She is now afebrile and hemodynamically stable. Still has left-sided pain. She has been able to take oral liquids. ALLERGIES: CIPROFLOXACIN, ERYTHROMYCIN, TETRACYCLINE, CEPHALEXIN, MORPHINE. CEPHALEXIN CAUSED HER NAUSEA. She is currently on Zosyn without significant side effect. MEDICATIONS: Included lisinopril, citalopram, ibuprofen, glucosamine, lactobacillus, mesalamine, Humira, vitamin B12, iron, hydrochlorothiazide, gabapentin, vitamin D, hydrocodone, ondansetron. She was started on cefdinir on 05/07/2018, now on Zosyn. PAST MEDICAL HISTORY: Ulcerative colitis, nephrolithiasis, hypertension, cholecystectomy, tonsillectomy, previous left ureteral stent. FAMILY HISTORY: Noncontributory. SOCIAL HISTORY: Nonsmoker, no significant alcohol intake. REVIEW OF SYSTEMS: CONSTITUTIONAL: As noted above. HEENT: Negative. CARDIOVASCULAR: Negative. PULMONARY: [place] [address] CONSULTATION Name: MARTHA ESTEVES Room: [address]#: [id number] Admission: 05/08/18 Attend Phys: Jessie Gallegos MD Discharge: Date of : 65 Report #: [id number] GASTROINTESTINAL: Has had left-sided abdominal pain. Does have loose stools and nausea and vomiting as noted above. This all has shown some improvement in the last 8 hours. GENITOURINARY: As above. MUSCULOSKELETAL: Negative. SKIN: Negative. NEUROLOGIC: Negative. PSYCHIATRIC: Negative. ENDOCRINE: Negative. HEMATOLOGIC: Negative. LYMPHATIC: Negative. PHYSICAL EXAMINATION: GENERAL: Alert, cooperative, obese, no acute distress, lying in bed. VITAL SIGNS: Afebrile, hemodynamically stable. HEENT: Eyes without conjunctivitis or scleral icterus. Mouth without mucositis or lesion. NECK: Supple, with no thyromegaly or mass or JVD. LUNGS: Clear. CARDIOVASCULAR: Regular, without murmur, gallop or rub. ABDOMEN: Tender on the left side. No appreciable mass or hepatosplenomegaly. She had left CVA tenderness. GENITAL AND RECTAL: Not performed. EXTREMITIES: No significant peripheral edema, cyanosis or clubbing. NEUROLOGIC: Including cranial nerves was normal. Deep tendon reflex is normal. Strength in the lower extremities and upper extremities is normal. Sensation to touch in the upper extremities and lower extremities normal. PSYCHIATRIC: Normal mood with no depression or anxiety. SKIN: Without rash. No palpable lymphadenopathy. LABORATORY STUDIES: Blood cultures are negative to-date. Urine culture negative so far. Urinalysis had significant pyuria and bacteriuria. Sodium 138, potassium 3, bicarbonate 24, creatinine 1.8. Liver function test normal. Hemoglobin 9.6, platelet count is 218,000. WBC 11.7. CT scan of the abdomen and pelvis as noted above with a large left lower pole calculus with associated pyelonephritis changes. Cystoscopy showed duplication of the right ureteral orifice with left ureteral orifice displaced laterally. She had turbid debris that returned after stent placement. IMPRESSION: 1. A 52-year-old with longstanding nephrolithiasis, recurrent urinary tract infections, now with left pyelonephritis. She has a stone in the left kidney, pelvis, which I am suspecting is intermittently obstructing. I am still awaiting urine cultures that were obtained on 05/07/2018. Currently on empiric antibiotic therapy. 2. Past history of Clostridium difficile colitis [place] [address] CONSULTATION Name: MARTHA ESTEVES Room: [address] IN M.R.#: [id number] Admission: 05/08/18 Attend Phys: Jessie Gallegos MD Discharge: Date of : 65 Report #: [id number] recurrence. 3. Ulcerative colitis, on immunosuppression with Humira. 4. Acute kidney injury. 5. Anemia. RECOMMENDATION: We will continue with Zosyn adjusted for her renal insufficiency. Await cultures of urine and blood. Hold Humira. Monitor stool output. Advance diet slowly. Following resolution of her urinary tract infection, we will then proceed with possible stone extraction per Urology recommendations. <ELECTRONICALLY SIGNED> By: Farshad Juan MD 05/10/18 1552 1344 [id number] Juan MD /nt
--- NOTE | 2018-05-10 16:51 | NUR ---
PT ADVANCED TO SOFT DIET WITH NO COMPLICATIONS.PT HAS HAD A COUPLE OF EPISODES OF INCONTINENCE DUE TO STENT PLACEMENT AND ULCERATIVE COLITIS.PT MADE MED-SURG STATUS AND WILL TRANSFER TO ROOM 109 IN JOINT AND SPINE UNIT.REPORT CALLED TO RAZIA.HEART MONITOR REMOVED AND RETURNED TO NURSING STATION.ALL PERSONAL BELONGINGS PACKED AND TAKEN WITH PT.
--- NOTE | 2018-05-10 17:38 | NUR ---
PATIENT ARRIVED TO UNIT FROM TELE AT 1720. ALERT AND ORIENTED X 4. VITAL SIGNS STABLE ON ROOM AIR. IV PATENT AND SALINE LOCKED. AGREE WITH PREVIOUS ASSESSMENTS. ORIENTED PATIENT TO ROOM. CALL LIGHT WITHIN REACH. NURSING WILL CONTINUE TO MONITOR.
--- NOTE | 2018-05-10 18:40 | NUR ---
PATIENT ALERT AND ORIENTED X 4. VITAL SIGNS STABLE ON ROOM AIR. UP WITH STAND BY ASSIST TO THE BEDSIDE COMODE. TRANSFERS SELF. IV PATENT WITH FLUIDS INFUSING. DENIES PAIN AND NAUSEA AT THIS TIME. HOURLY ROUNDS MAINTAINED SINCE ARRIVING TO UNIT. CALL LIGHT WITHIN REACH. NURSINGW WILL CONTINUE TO MONITOR.
--- NOTE | 2018-05-11 06:58 | NUR ---
ALERT AND ORIENTED X4. UP AD MONROE TO BEDSIDE COMMODE. DENIES NEED FOR PAIN OR NAUSEA MEDICATIONS. IVF INFUSING WITHOUT DIFFICULTY. VOIDING ORANGE COLOR URINE WITHOUT DIFFICULTY. CALL LIGHT WITHIN REACH.
[2018-05-11 08:30] VITALS: BP 116/77
[2018-05-11] MEDS ORDERED: LEVSIN0.125 MG SUBLING (09:52)
[2018-05-11] MEDS ORDERED: AUGMENTIN 875-1 EACH PO (09:52)
[2018-05-11] MEDS ORDERED: TRAMADOL 50 MG50 MG PO (09:52)
[2018-05-11] MEDS ORDERED: TRANSDERM-SCOP1 EACH TRANSDERM (09:52)
--- NOTE | 2018-05-11 14:00 | NUR ---
PT.ALERT AND ORIENTED. PLANS ON GOING HOME TODY. SHE DENIES ANY DISCHARGE NEEDS. SHE LIVES WITH HER HUSBNAD. SHE IS NORMALLY INDEPENDENT AND WORKS OUTSIDE THE HOME. NO USE OF DME.
[2018-05-11 14:36] VITALS: BP 121/74
[2018-05-11 14:49] VITALS: BP 121/74
--- NOTE | 2018-05-11 20:15 | NUR ---
PATIENT LEFT UNIT AT 1545. ALERT AND ORIENTED X4. UP AD [place]RO[place] IN ROOM. PICC DC'D. DENIES PAIN AND NAUSEA. ALL PERSONAL ITEMS LEFT WITH PATIENT. DISCHARGE INSTRUCTIONS, PRESCRIPTIONS, AND NEW MEDICATION INFORMATION SENT WITH PATIENT. VSS ON ROOM AIR. HOURLY ROUNDS HAVE BEEN MAINTAINED THROUGHOUT SHIFT. LEFT WITH VIA CAR.
[2018-05-11 20:17] VITALS: BP 121/74
== END 2018-05-11 15:45 | disposition home or self-care (01) | DRG 853 ==
LOC: M.ERS 13:36 → M.ICU 16:04 → M.ORTHSURG 16:04 → M.TBA-ER 16:04 → M.ICU 17:28 → M.2W 05-10 03:05 → M.ORTHSURG 05-10 17:19
PROVIDERS: Personal Emergency Response Attendant; ADMIT Internal Medicine
DX: A41.9 Sepsis, unspecified organism (principal); N17.0 Acute kidney failure with tubular necrosis; J96.00 Acute respiratory failure, unspecified whether with hypoxia or hypercapnia; N13.6 Pyonephrosis; K51.90 Ulcerative colitis, unspecified, without complications; Z68.42 Body mass index [BMI] 45.0-49.9, adult; N20.0 Calculus of kidney; D64.9 Anemia, unspecified; L40.9 Psoriasis, unspecified; N18.3 Chronic kidney disease, stage 3 (moderate); E66.01 Morbid (severe) obesity due to excess calories; Z90.49 Acquired absence of other specified parts of digestive tract; Z87.442 Personal history of urinary calculi; Z87.440 Personal history of urinary (tract) infections; Z79.899 Other long term (current) drug therapy; Z88.1 Allergy status to other antibiotic agents; Z88.5 Allergy status to narcotic agent; Z88.8 Allergy status to other drugs, medicaments and biological substances

== ENCOUNTER → 2018-09-28 | Outpatient (CLI) | payer OTHER ==
[~2018-09-28] MED LIST changes: +AUGMENTIN 875-1 EACH PO; +LEVSIN0.125 MG SUBLING; +TRAMADOL 50 MG50 MG PO; +TRANSDERM-SCOP1 EACH TRANSDERM
== END ==
LOC: M.RAD 10:19
DX: Z12.31 Encounter for screening mammogram for malignant neoplasm of breast (principal)

== ENCOUNTER 2018-11-15 01:53 | Emergency (ER) | payer OTHER ==
[~2018-11-15] VITALS: Ht 162.6 cm; Wt 124.7 kg
[2018-11-15] MEDS ORDERED: AMOX TR-K CLV1 EAC4 PO (02:18)
[2018-11-15] MEDS ORDERED: LEVAQUIN 500 M500 M2 PO (02:19)
[2018-11-15] MEDS ORDERED: ZOFRAN ODT4 MG SUBLING (02:20)
[2018-11-15 02:34] LABS: URINE BILIRUBIN NEGATIVE (Negative); URINE BLOOD TRACE (Negative); URINE CLARITY CLEAR; URINE COLOR YELLOW; URINE GLUCOSE-RANDOM NEGATIVE (Negative); URINE KETONES NEGATIVE (Negative); URINE NITRITE-REFLEX NEGATIVE (Negative); URINE PROTEIN NEGATIVE (Negative); URINE SPECIFIC GRAVITY 1.025 (1.005-1.030); URINE UROBILINOGEN 0.2 E.U./dl (0.2-1.0)
[2018-11-15 02:36] LABS: URINE LEUKOCYTES-REFLEX 2+ (Negative)
[2018-11-15 02:49] LABS: HEMATOCRIT 36.6 % (37.0-47.0); HEMOGLOBIN 12.5 gm/dL (12.0-15.0); MCH 27.8 pg (26.0-34.0); MCV 81.7 fL (80.0-100.0); MPV 7.8 fl. (7.2-11.1); NUCLEATED RBCS 0 /100WBC; PLATELET COUNT* 290 thou/uL (150-400); RBC 4.49 mil/uL (4.20-5.00); RDW-CV 13.6 % (10.5-14.5); WBC 10.8 thou/uL (4.0-11.0)
[2018-11-15 02:57] LABS: ANION GAP 15 mmol/L (7-16); BUN 33 mg/dL (7-18); CHLORIDE 103 mmol/L (98-107); CO2 21 mmol/L (21-32); CREATININE 1.4 mg/dL (0.6-1.3); GLUCOSE 173 mg/dL (70-99); POTASSIUM 3.5 mmol/L (3.5-5.1); SODIUM 139 mmol/L (136-145)
[2018-11-15] MEDS ORDERED: WELLBUTRIN XL150 MG PO (02:58)
[2018-11-15 03:06] LABS: ALBUMIN 3.4 g/dL (3.4-5.0); ALKALINE PHOSPHATASE 73 U/L (46-116); LIPASE 302 U/L (73-393); SGOT 18 U/L (15-37); SGPT 26 U/L (30-65); TOTAL BILIRUBIN 0.6 mg/dL (<0.1-1.0); TOTAL PROTEIN 7.4 g/dL (6.4-8.2); TROPONIN-I LEVEL <0.06 ng/mL (<0.06)
[2018-11-15 03:52] LABS: CASTS None Seen /LPF (None Seen); SQUAMOUS 4-10 Moderate /LPF (0-3); URINE RBC 3-10 Few /HPF (0-2); URINE WBC-REFLEX >25 Many /HPF (0-5)
[2018-11-15 03:53] LABS: CRYSTALS None Seen /LPF (None Seen)
[2018-11-15 04:14] LABS: ABSOLUTE LYMPHOCYTES 0.3 thou/uL (0.8-5.3); ABSOLUTE NEUTROPHILS 10.5 thou/uL (1.6-8.1); ATYPICAL LYMPHS 1 %; METAMYELOCYTES 1 %
[2018-11-15 04:15] LABS: PLATELET ESTIMATE ADEQUATE
[2018-11-15] MEDS ORDERED: ZOFRAN ODT4 MG DISSOLVE (04:35)
[2018-11-15] MEDS ORDERED: PHENERGAN 25 MG25 M1 PO (04:38)
[2018-11-15 05:00] VITALS: BP 127/69
--- NOTE | 2018-11-17 13:01 | EKG ---
[place] [address] ELECTROCARDIOGRAM REPORT Name: ESTEVESMARTHA JANETH Room: [facility] ([place], [place])#: [id number] Admission: 11/15/18 Attend Phys: Discharge: 11/15/18 Date of : 65 Report #: [id number] THIS REPORT FOR: //name// [facility] ED Test Date: 2018-11-15 Test Time: 02:23:42 Pat Name: MARTHA ESTEVES Department: Room: Gender: F Auto Tech: AMADOU : 1965 Requested By: Ritchie Christianson Order Number: [id number] MD: Chuck Parmar Measurements Intervals [place] Rate: 100 P: 44 DE: 133 QRS: 41 QRSD: 103 T: 42 QT: 339 QTc: 438 Interpretive Statements Sinus tachycardia Compared to ECG 04/18/2018 08:18:27 no change Electronically Signed On 11-17-2018 13:00:58 CDT by Chuck Parmar [email or web address] <ELECTRONICALLY SIGNED> By: Chuck Parmar MD, [facility] 11/17/18 1300 022 2 Chuck Parmar MD, FACC /EPI
== END 2018-11-15 05:00 | disposition home or self-care (01) ==
LOC: M.ERS 01:53
PROVIDERS: Emergency Medicine Emergency Medical Services
DX: N39.0 Urinary tract infection, site not specified (principal); K52.9 Noninfective gastroenteritis and colitis, unspecified; E66.01 Morbid (severe) obesity due to excess calories; Z68.42 Body mass index [BMI] 45.0-49.9, adult; Z90.49 Acquired absence of other specified parts of digestive tract; Z88.1 Allergy status to other antibiotic agents; Z88.5 Allergy status to narcotic agent

== ENCOUNTER → 2018-12-17 | Outpatient (CLI) | payer OTHER ==
[~2018-12-17] MED LIST changes: +AMOX TR-K CLV1 EAC4 PO; +LEVAQUIN 500 M500 M2 PO; +PHENERGAN 25 MG25 M1 PO; +WELLBUTRIN XL150 MG PO; +ZOFRAN ODT4 MG SUBLING
== END ==
LOC: M.LAB 04:56
DX: E87.6 Hypokalemia (principal)

== ENCOUNTER → 2019-10-12 | Outpatient (CLI) | payer OTHER | LOC: M.RAD 09:44 | DX: Z12.31 Encounter for screening mammogram for malignant neoplasm of breast (principal) ==

== ENCOUNTER → 2020-10-11 | Outpatient (CLI) | payer OTHER ==
[2020-10-11 12:16] LABS: HEMATOCRIT 31.6 % (37.0-47.0); HEMOGLOBIN 10.4 gm/dL (12.0-15.0); MCH 26.2 pg (26.0-34.0); MCHC 33.1 g/dL (28.0-37.0); MCV 79.3 fL (80.0-100.0); MPV 6.2 fl. (7.2-11.1); RBC 3.98 mil/uL (4.20-5.00); RDW-CV 14.4 % (10.5-14.5); WBC 6.7 thou/uL (4.0-11.0)
[2020-10-11 12:30] LABS: CALCIUM 9.9 mg/dL (8.5-10.1); CREATININE 1.2 mg/dL (0.6-1.3); POTASSIUM 3.5 mmol/L (3.5-5.1)
[2020-10-11 12:33] LABS: APTT 25.6 Seconds (25.0-31.3); INR 0.9; PROTIME 9.8 Seconds (9.20-11.50)
[2020-10-11 18:24] LABS: BF RBC 2143 /mm3; TOTAL CELL COUNT 2518 /mm3
[2020-10-11 18:32] LABS: CLARITY SLIGHTLY HAZY; TOTAL VOLUME 15 ml
[2020-10-11 18:36] LABS: BF EOSINOPHILS 1 %; BF LYMPHOCYTES 96 %; BF MONOCYTES 3 %; BF POLYS 0 %; BF TISSUE 3 /100 WBC; SOURCE PLEURAL FLUID
[2020-10-11 20:30] LABS: % SATURATION 13 % (20-39); IRON 40 ug/dL (50-175)
[2020-10-15 09:06] LABS: BODY FLUID PROTEIN 4.9 g/dL (())
--- NOTE | 2020-10-17 13:08 | PATH ---
[address] [address] PATHOLOGY RPT PROCEDURE Name: ESTEVESMARTHACODI FOWLER Room: [facility] RiverMichelle#: [id number] Admission: 10/11/20 Date of : 65 Discharge: Report #: [id number] Path Case #: [id number] Note [facility] Accession Number: [id number] TESTS RESULT FLAG UNITS REF RANGE LAB Clinician Provided Cytology Information No. of containers..01 Other (Miscellaneous) Source: PLEURAL FLUID DIAGNOSIS: 01 PLEURAL FLUID NEGATIVE FOR MALIGNANT CELLS. THIS INTERPRETATION INCLUDES EVALUATION OF A CELL BLOCK. COMMENT, NUMEROUS MATURE LYMPHOCYTES PRESENT SUGGEST CLINICAL CORRELATION Signed out by: 01 Jorge Zhao MD, Pathologist NPI- [id number] Performed by: 01 Lauren Oakes, Plant Wrapper ([facility]) Gross description: 01 2ML, HAZY YELLOW, 1 TP 1 CB /LCS 10/16/20202027 Local FLAG LEGEND: L-Low Normal,H-High Normal,LL-Alert Low,HH-Alert High <-Panic Low,>-Panic High,A-Abnormal,AA-Critical Abnormal Performed at: [address] [place] [address] Jorge Zhao MD, Performed at: [address], [place], [place] [id number] MD Jorge Zhao MD Phone: [phone]
== END ==
LOC: M.ULTRA 11:44 → M.LAB 12:00 → M.ULTRA 13:00
PROVIDERS: ATTEND Family Medicine
DX: J90 Pleural effusion, not elsewhere classified (principal); Z87.440 Personal history of urinary (tract) infections; Z79.899 Other long term (current) drug therapy; Z98.890 Other specified postprocedural states

== ENCOUNTER 2021-08-12 05:23 | Inpatient (IN) | payer OTHER ==
[~2021-08-12] VITALS: Ht 162.6 cm; Wt 124.7 kg
[2021-08-12 05:26] VITALS: BP 114/52
[2021-08-12] MEDS ORDERED: CYMBALTA30 MG PO (05:30)
[2021-08-12] MEDS ORDERED: HIPREX1 GM PO (05:32)
[2021-08-12 05:44] LABS: URINE BILIRUBIN NEGATIVE (Negative); URINE BLOOD 3+ (Negative); URINE COLOR YELLOW; URINE GLUCOSE-RANDOM NEGATIVE (Negative); URINE KETONES NEGATIVE (Negative); URINE NITRITE-REFLEX NEGATIVE (Negative); URINE PROTEIN 1+ (Negative); URINE SPECIFIC GRAVITY 1.025 (1.005-1.030); URINE UROBILINOGEN 0.2 E.U./dl (0.2-1.0)
[2021-08-12 05:47] LABS: URINE CLARITY SL HAZY; URINE LEUKOCYTES-REFLEX 2+ (Negative)
[2021-08-12 05:53] LABS: ABSOLUTE LYMPHOCYTES 0.8 thou/uL (0.8-5.3); ABSOLUTE NEUTROPHILS 13.6 thou/uL (1.6-8.1); BASOPHILS 0.1 %; HEMATOCRIT 31.5 % (37.0-47.0); HEMOGLOBIN 10.5 gm/dL (12.0-15.0); LYMPHOCYTES 4.9 %; MCH 26.9 pg (26.0-34.0); MCHC 33.5 g/dL (28.0-37.0); MCV 80.4 fL (80.0-100.0); MONOCYTES 6.5 %; MPV 7.1 fl. (7.2-11.1); NUCLEATED RBCS 0 /100WBC; PLATELET COUNT* 236 thou/uL (150-400); POLYS 88.5 %; RBC 3.92 mil/uL (4.20-5.00); RDW-CV 14.3 % (10.5-14.5); WBC 15.4 thou/uL (4.0-11.0)
[2021-08-12 05:55] LABS: SQUAMOUS 0-3 Few /LPF (0-3); URINE RBC >20 Many /HPF (0-2); URINE WBC-REFLEX >25 Many /HPF (0-5)
[2021-08-12 05:56] LABS: BACTERIA-REFLEX >30 Many /HPF (None Seen); CASTS None Seen /LPF (None Seen); CRYSTALS None Seen /LPF (None Seen); MUCUS 0-3 Light strn/LPF (None Seen)
[2021-08-12 05:57] LABS: CALCIUM 8.7 mg/dL (8.5-10.1); CREATININE 1.5 mg/dL (0.6-1.3); POTASSIUM 3.2 mmol/L (3.5-5.1)
[2021-08-12 06:06] LABS: MAGNESIUM 1.6 mg/dL (1.8-2.4); TOTAL BILIRUBIN 0.8 mg/dL (<0.1-1.0); TOTAL PROTEIN 6.5 g/dL (6.4-8.2)
[2021-08-12 08:35] VITALS: BP 152/79
[2021-08-12 08:50] VITALS: BP 151/76
[2021-08-12 16:00] VITALS: BP 122/70
[2021-08-12 20:00] VITALS: BP 134/65
[2021-08-13] VITALS: BP 118/75
[2021-08-13 03:54] VITALS: BP 113/83
[2021-08-13 04:19] LABS: CALCIUM 8.8 mg/dL (8.5-10.1); CREATININE 1.4 mg/dL (0.6-1.3); POTASSIUM 3.3 mmol/L (3.5-5.1)
[2021-08-13 08:26] LABS: ABSOLUTE LYMPHOCYTES 1.3 thou/uL (0.8-5.3); ABSOLUTE MONOCYTES 0.8 thou/uL (0.0-1.2); ABSOLUTE NEUTROPHILS 9.7 thou/uL (1.6-8.1); BASOPHILS 0.1 %; HEMATOCRIT 29.7 % (37.0-47.0); HEMOGLOBIN 9.7 gm/dL (12.0-15.0); MCH 26.5 pg (26.0-34.0); MCHC 32.6 g/dL (28.0-37.0); MCV 81.2 fL (80.0-100.0); MONOCYTES 7.1 %; MPV 7.2 fl. (7.2-11.1); NUCLEATED RBCS 0 /100WBC; PLATELET COUNT* 205 thou/uL (150-400); POLYS 81.8 %; RBC 3.66 mil/uL (4.20-5.00); RDW-CV 14.4 % (10.5-14.5); WBC 11.9 thou/uL (4.0-11.0)
[2021-08-13 15:50] VITALS: BP 136/83
[2021-08-13 20:40] VITALS: BP 109/60
[2021-08-14] VITALS: BP 129/77
[2021-08-14 05:34] LABS: ABSOLUTE LYMPHOCYTES 1.8 thou/uL (0.8-5.3); ABSOLUTE NEUTROPHILS 8.2 thou/uL (1.6-8.1); BASOPHILS 0.3 %; EOSINOPHILS 0.4 %; HEMATOCRIT 30.9 % (37.0-47.0); HEMOGLOBIN 10.3 gm/dL (12.0-15.0); LYMPHOCYTES 16.3 %; MCH 26.4 pg (26.0-34.0); MCHC 33.3 g/dL (28.0-37.0); MCV 79.3 fL (80.0-100.0); MONOCYTES 8.6 %; MPV 7.4 fl. (7.2-11.1); NUCLEATED RBCS 0 /100WBC; PLATELET COUNT* 250 thou/uL (150-400); POLYS 74.4 %; RBC 3.89 mil/uL (4.20-5.00); RDW-CV 14.1 % (10.5-14.5)
[2021-08-14 06:04] LABS: ALBUMIN 2.5 g/dL (3.4-5.0); CALCIUM 8.6 mg/dL (8.5-10.1); CREATININE 1.2 mg/dL (0.6-1.3); POTASSIUM 3.2 mmol/L (3.5-5.1); TOTAL BILIRUBIN 0.5 mg/dL (<0.1-1.0); TOTAL PROTEIN 6.8 g/dL (6.4-8.2)
[2021-08-14 09:35] VITALS: BP 117/66
[2021-08-14 16:27] VITALS: BP 124/59
[2021-08-14 20:00] VITALS: BP 133/76
[2021-08-15] VITALS: BP 128/68
[2021-08-15 09:10] VITALS: BP 147/78
[2021-08-15] MEDS ORDERED: CEFDINIR300 MG PO (12:16)
[2021-08-15] MEDS ORDERED: PREMARIN30 GM TOP (12:16)
[2021-08-15] MEDS ORDERED: CULTURELLE KID1 EAC1 PO (12:16)
[2021-08-15 14:17] VITALS: BP 147/78
[2021-08-15] MEDS ORDERED: KEFLEX250 MG PO (16:14)
== END 2021-08-15 14:30 | disposition home or self-care (01) | DRG 871 ==
LOC: M.ERS 05:23 → M.TBA-ER 06:37 → M.2W 08:48 → M.ORTHSURG 08-14 19:23
PROVIDERS: Emergency Medicine; Internal Medicine; ADMIT Internal Medicine; ATTEND Internal Medicine
DX: A41.9 Sepsis, unspecified organism (principal); N17.0 Acute kidney failure with tubular necrosis; K51.90 Ulcerative colitis, unspecified, without complications; N13.6 Pyonephrosis; Z68.42 Body mass index [BMI] 45.0-49.9, adult; Z20.822 Contact with and (suspected) exposure to COVID-19; E66.01 Morbid (severe) obesity due to excess calories; F12.90 Cannabis use, unspecified, uncomplicated; E86.0 Dehydration; L40.9 Psoriasis, unspecified; M79.10 Myalgia, unspecified site; Z60.2 Problems related to living alone; Z90.49 Acquired absence of other specified parts of digestive tract; Z87.442 Personal history of urinary calculi; Z88.6 Allergy status to analgesic agent; Z88.1 Allergy status to other antibiotic agents; Z88.8 Allergy status to other drugs, medicaments and biological substances